=== PATIENT | male | born 1930 | race Caucasian/White ===

== ENCOUNTER 2017-11-11 21:59 | Emergency (ER) | payer OTHER ==
[2017-11-11 22:08] VITALS: RESP 18
[2017-11-11 22:12] VITALS: TEMP 97.9
--- NOTE | 2017-11-11 22:34 | EDPHY ---
H & P Stated Complaint: fall out of bed, right ear lac Time Seen by Provider: 11/11/17 22:12 HPI/ROS: Chief Complaint: Fall, head an ear laceration HPI: 87-year-old hospice patient rolled out of bed and struck his head on the nightstand. He did not have a loss of consciousness. He did sustain a laceration to his ear and his scalp behind his ear. He has a completed [place] MOST form indicating comfort measures only. He is here with the hospice nurse. She indicates that they have discussed with the family they do not want any imaging or other evaluations. They are here for laceration repair only. He is at his baseline. ROS: 10 point Review of Systems is negative except as noted in the HPI. PMH: CVA Social History: No smoking, no alcohol, no recreational drug use Family History: non-contributory Physical Exam: Gen: Awake, Alert, No Distress HEENT: Scalp: He has a superficial laceration behind his right ear. Ears: There is a laceration to the lateral aspect of his right ear pinna. It is not through and through. There is not appear to be any cartilage involvement. Nose: no rhinorrhea Eyes: PERRLA, EOMI Mouth: Moist mucosa Neck: Supple, no JVD Chest: nontender, lungs clear to auscultation Heart: S1, S2 normal, no murmur Abd: Soft, non-tender, no guarding Back: no CVA tenderness, no midline tenderness Ext: no edema, non-tender Skin: no rash Neuro: CN II-XII intact, Sensation grossly intact, Strength 5/5 in bilateral upper and lower extremities - Personal History Current Tetanus/Diphtheria Vaccine: Yes - Medical/Surgical History Hx Asthma: No Hx Chronic Respiratory Disease: No Hx Diabetes: No Hx Cardiac Disease: No Hx Renal Disease: No Hx Cirrhosis: No Hx Alcoholism: No Hx HIV/AIDS: No Hx Splenectomy or Spleen Trauma: No Other PMH: Stroke 2012, htn, GERD, glaucoma, dumping syndrome, hypothyroidism, appendectomy - Social History Smoking Status: Never smoked Constitutional: Initial Vital Signs Heart Rate 74 11/11/17 22:05 Respiratory Rate 18 11/11/17 22:05 Blood Pressure 139/85 H 11/11/17 22:05 O2 Sat (%) 95 11/11/17 22:05 O2 Delivery Mode Room Air Allergies/Adverse Reactions: morphine Allergy (Mild, Verified 11/11/17 22:08) Home Medications: Medication Instructions Recorded Timolol 0.5% [TIMOPTIC 0.5% (*)] 1 drops EACHEYE BID 10/13/12 Ascorbic Acid [Vitamin C 500 mg 1,000 mg PO BID 10/15/12 (*)] Aspirin [Aspirin 81mg (*)] 81 mg PO DAILY #0 tab 10/16/12 Atorvastatin Calcium [Lipitor 10 10 mg PO DAILY #0 tab 10/16/12 mg (*)] Cymbalta 11/11/17 Latanoprost 11/11/17 Levothyroxine 11/11/17 Omeprazole 11/11/17 Senna-S Tablet 11/11/17 Triamcinolone/Emollient [id number]#[id number] 11/11/17 Medical Decision Making Procedures: Procedure: Laceration 1. repair. Verbal consent was obtained from the patient. The 1.5 cm laceration on the right ear pinna was anesthetized in the usual fashion. The wound was irrigated , draped and explored to its base with a gloved finger. There were no deep structures involved. No tendon injury was identified. The wound was repaired with 3, 5-0 fast-absorbing gut simple interrupted sutures. The wound repair was uncomplicated. The procedure was performed by myself. Procedure: Laceration 2. repair. Verbal consent was obtained from the patient. The 1 cm laceration on the right scalp was anesthetized in the usual fashion. The wound was irrigated, draped and explored to its base with a gloved finger. There were no deep structures involved. No tendon injury was identified. The wound was repaired with 1, 5-0 fast-absorbing gut simple interrupted suture. The wound repair was uncomplicated. The procedure was performed by myself. ED Course/Re-evaluation: 87-year-old male on hospice care status post fall with lacerations to his ear and scalp. These have been repaired by me. I have put in fast-absorbing gut sutures so they do not need to be removed. Patient is not for any further care imaging and I think that this is appropriate. Will discharge back to care of his hospice nurse. Wound care instructions have been provided. Departure - Departure Disposition: Home, Routine, Self-Care Clinical Impression: Scalp laceration, Laceration of ear Condition: Good Instructions: Laceration (ED), Care For Your Absorbable Stitches (ED) Additional Instructions: Sutures are absorbable and do not need to be removed. Watch for signs of infection including redness, discharge from the wound, fevers , increasing pain. Referrals: Trang Briones MD [Primary Care Provider] - As per Instructions
[2017-11-11 23:03] VITALS: BP 139/89; PULSE 73; O2SAT 94
== END 2017-11-11 23:23 | disposition home or self-care (01) ==
LOC: EDUNIT#
PROC: 09Q0XZZ Repair Right External Ear, External Approach (ICD-10-PCS; principal; 2017-11-11)
PROC: 0HQ0XZZ Repair Scalp Skin, External Approach (ICD-10-PCS; 2017-11-11)
DX: S01.01XA Laceration without foreign body of scalp, initial encounter (principal); S01.311A Laceration without foreign body of right ear, initial encounter; I10 Essential (primary) hypertension; Z86.73 Personal history of transient ischemic attack (TIA), and cerebral infarction without residual deficits; Z79.82 Long term (current) use of aspirin; W06.XXXA Fall from bed, initial encounter